=== PATIENT | male | born 2000 | race Two or more races ===

== ENCOUNTER 2022-01-05 20:29 | Emergency (ER) | payer MEDICAID, OTHER ==
[~2022-01-05] VITALS: Ht 152.4 cm; Wt 54.5 kg
[2022-01-05 21:40] VITALS: BP 132/80
[2022-01-05] MEDS ORDERED: ACETAMINOPHEN 325 MG TAB PO ONE (22:45)
[2022-01-06] MEDS ORDERED: IBUP400T23 PO (00:11)
[2022-01-06] MEDS ORDERED: AZIT500T66 PO (00:11)
[2022-01-06] MEDS ORDERED: IBUPROFEN 600 MG TAB PO ONE (00:15)
== END 2022-01-06 00:20 | disposition home or self-care (01) ==
LOC: ER 20:29
DX: J02.9 Acute pharyngitis, unspecified (principal); Z20.822 Contact with and (suspected) exposure to COVID-19
CPT/HCPCS: 36415; 71045; 87804